=== PATIENT | male | born 1965 | race Caucasian/White ===

== ENCOUNTER 2017-05-23 15:52 | Emergency (ER) | payer MEDICAID ==
[~2017-05-23] VITALS: Ht 177.8 cm; Wt 64.5 kg
[~2017-05-23 15:52] MED LIST: CLON-527 PO; COLACE; FENT1PAT7 TOP; HYDR-565 PO; HYDR-569 PO
[2017-05-23] MEDS ORDERED: HYDROcodone/acetaminophen 5mg/325mg tablet PO ONE (17:00)
[2017-05-23 17:21] VITALS: BP 142/86
== END 2017-05-23 17:22 | disposition home or self-care (01) ==
LOC: ER 15:53
DX: S80.02XA Contusion of left knee, initial encounter (principal); G89.29 Other chronic pain; Z89.512 Acquired absence of left leg below knee; Z98.890 Other specified postprocedural states; Z88.6 Allergy status to analgesic agent; Z79.899 Other long term (current) drug therapy; W19.XXXA Unspecified fall, initial encounter; Y93.89 Activity, other specified; Y92.89 Other specified places as the place of occurrence of the external cause; Y99.9 Unspecified external cause status
CPT/HCPCS: 73560; 99284

== ENCOUNTER 2022-01-16 10:29 | Emergency (ER) | payer MEDICAID ==
[~2022-01-16] VITALS: Ht 177.8 cm; Wt 63.6 kg
[~2022-01-16 10:29] MED LIST changes: +HYDR-4353 PO; +HYDR-4383 PO; -HYDR-565 PO; -HYDR-569 PO
[2022-01-16 11:03] VITALS: BP 125/83
[2022-01-16] MEDS ORDERED: acetaminophen 325mg tablet PO ONE (12:20)
== END 2022-01-16 12:38 | disposition home or self-care (01) ==
LOC: ER 10:30
DX: S09.90XA Unspecified injury of head, initial encounter (principal); G89.29 Other chronic pain; Z88.8 Allergy status to other drugs, medicaments and biological substances; W19.XXXA Unspecified fall, initial encounter; Y93.89 Activity, other specified; Y92.89 Other specified places as the place of occurrence of the external cause; Y99.8 Other external cause status
CPT/HCPCS: 70450; 99284

== ENCOUNTER 2022-04-26 06:18 | Inpatient (IN) | payer MEDICAID ==
[2022-04-19 14:40] LABS: BASOPHILS % (AUTO) 0.5 % (0-1); EOSINOPHILS # (AUTO) 0.3 X10'3 (0-0.9); EOSINOPHILS % (AUTO) 3.7 % (0-6); LYMPHOCYTES # (AUTO) 2.1 X10'3 (1.1-4.8); LYMPHOCYTES % (AUTO) 27.9 % (21-51); MEAN CORPUSCULAR HEMOGLOBIN 33.6 PG (27.0-31.0); MEAN CORPUSCULAR VOLUME 98.7 FL (78-98); MONOCYTES # (AUTO) 0.6 X10'3 (0-0.9); MONOCYTES % (AUTO) 7.8 % (2-12); NEUTROPHILS # (AUTO) 4.4 X10'3 (1.8-7.7); NEUTROPHILS % (AUTO) 60.1 % (42-75); PRE OP HEMATOCRIT 44.8 % (42.0-52.0); PRE OP HEMOGLOBIN 15.2 g/dL (14.0-17.9); PRE OP PLATELET COUNT 170 X10'3 (140-440); RED BLOOD COUNT 4.54 X10'6 (4.70-6.10); RED CELL DISTRIBUTION WIDTH 12.9 % (11.5-14.5)
[2022-04-19 14:59] LABS: ALBUMIN 3.8 G/DL (3.4-5.0); ALBUMIN/GLOBULIN RATIO 0.8 (1.1-1.5); ALKALINE PHOSPHATASE 91 IU/L (46-116); BLOOD UREA NITROGEN 8 MG/DL (7-18); BUN/CREATININE RATIO 11.3 (5.4-32.0); CALCIUM 9.2 MG/DL (8.5-10.1); CHLORIDE 100 MMOL/L (99-107); CREATININE 0.71 MG/DL (0.60-1.10); PRE OP ALT 16 U/L (30-65); PRE OP ANION GAP 8 (8-16); PRE OP AST 24 U/L (10-37); PRE OP BILIRUB, TOTAL 0.4 MG/DL (0.0-1.0); PRE OP GLUCOSE 81 MG/DL (70-104); PRE OP SODIUM 137 MMOL/L (135-145); TOTAL CARBON DIOXIDE 29.2 MMOL/L (24-32); TOTAL PROTEIN 8.4 G/DL (6.4-8.2); eGFR > 90 ML/MIN
[~2022-04-26] VITALS: Ht 177.8 cm; Wt 62.6 kg
[2022-04-26] VITALS (30 sets, daily range): BP systolic 112–144; BP diastolic 74–91
[~2022-04-26 06:18] MED LIST changes: +ALPR0.5T9 PO; -CLON-527 PO; -COLACE; +ESCI20TA39 PO; -FENT1PAT7 TOP; -HYDR-4353 PO; -HYDR-4383 PO; +ceFAZolin inj. 2,000 MG in dextrose 5%-water 100 ML IV ONE; +famotidine 20mg tablet PO ONE; +ringers solution, lacted 1,000 ML IV SCH; +tranexamic acid 650mg tablet PO ONE
[2022-04-26] MEDS ORDERED: vancomycin/NS 1 GM in NS 250 ML IV ONE (08:16)
[2022-04-26] MEDS ORDERED: ROPIVAcaine 0.5% (5mg/ml) 30ml vial ONE ×2 (08:26→09:06)
[2022-04-26] MEDS ORDERED: ketorolac trometh. 30mg/ml inj. ONE (08:26)
[2022-04-26] MEDS ORDERED: ondansetron/PF 4mg/2ml inj IV PRN ×2 (08:45→11:05)
[2022-04-26] MEDS ORDERED: ringers solution, lacted 1,000 ML IV SCH (08:45)
[2022-04-26] MEDS ORDERED: meperidine/PF 25mg/ml syringe IV PRN ×2 (08:45)
[2022-04-26] MEDS ORDERED: HYDROmorphone/PF 0.2 MG/ML SYRINGE IV PRN (08:45)
[2022-04-26] MEDS ORDERED: MIDAZolam 1 MG/ML 5ML VIAL ONE (09:04)
[2022-04-26] MEDS ORDERED: FENTANYL CITRATE/PF 50 MCG/1 ML VIAL ONE (09:04)
[2022-04-26] MEDS ORDERED: propofol inj 20 ML IV ONE (09:04)
[2022-04-26] MEDS ORDERED: dexamethasone sod phosphate 10mg/ml inj ONE (09:14)
[2022-04-26] MEDS ORDERED: sevoflurane 250ml liquid IH ONE (09:14)
[2022-04-26] MEDS ORDERED: ROPIVAcaine 0.2% (10 MG/5 ML) BOLUS INJECTION INTERSCALE PRN (09:16)
[2022-04-26] MEDS ORDERED: ROPIVAcaine 0.2%/PF PUMP/bolus 550 ML INTERSCALE SCH (09:17)
[2022-04-26] MEDS ORDERED: ondansetron/PF 4mg/2ml inj ONE (11:00)
[2022-04-26] MEDS ORDERED: ePHEDrine 50MG/ML INJ. ONE (11:00)
[2022-04-26] MEDS ORDERED: HYDROmorphone 1 mg/ml syringe IV PRN (11:05)
[2022-04-26] MEDS ORDERED: naloxone 0.4 mg/ml inj IV PRN (11:05)
[2022-04-26] MEDS ORDERED: magnesium hydroxide 30ml (MOM) UD suspension PO PRN (11:05)
[2022-04-26] MEDS ORDERED: HYDROcodone/acetaminophen 10/325mg tab PO PRN ×2 (11:05)
[2022-04-26] MEDS ORDERED: HYDROmorphone inj. 0.5 MG/0.5 ML DISP.SYRIN IV PRN (11:05)
[2022-04-26] MEDS ORDERED: diphenhydrAMINE 25mg capsule PO PRN ×2 (11:05)
[2022-04-26] MEDS ORDERED: oxyCODONE IR 5mg (immed. release) tablet PO PRN (11:05)
[2022-04-26] MEDS ORDERED: bisacodyl 10mg suppository rectal RC PRN (11:05)
[2022-04-26] MEDS ORDERED: acetaminophen 325mg tablet PO PRN (11:05)
--- NOTE | 2022-04-26 11:15 | NUR ---
PT ARRIVED TO VIA BED ACCOMPANIED BY DR CALLAWAY-ANESTHESIA REPORT GIVEN, PT WAKING UP, VSS, DENIES PAIN, ON-Q CATHETER PRESENT WITH SHOULDER WRAP, CSM PRESENT WITH PULSES, ARM IN SLING.
[2022-04-26] MEDS: HYDROmorphone/PF 0.2 MG/ML SYRINGE IV PRN ×2 (13:15→14:31)
--- NOTE | 2022-04-26 13:30 | NUR ---
PT AWAKE, SO AT BEDSIDE, VSS, DISCUSSED ON-Q WITH BOTH-ALL QUESTIONS ANSWERED, STARTED AT 2ML/HR, SOME PAIN IN SHOULDER-DILAUDID GIVEN
[2022-04-26] MEDS ORDERED: acetaminophen 325mg tablet PO SCH (14:00)
--- NOTE | 2022-04-26 14:35 | NUR ---
PT AWAKE, VSS, DID HAVE AN EPISODE OF NAUSEA-ZOFRAN GIVEN WITH GOOD RESULTS, ALSO INCREASED PAIN WITH MOVEMENT TO SIDE OF BED TO VOID-GIVEN 2ND DOSE OF DILAUDID WITH GOOD RESULT WELL. NO CHANGES IN CIRCULATION TO SURGICAL ARM-+CSM, +PULSE, ARM IN SLING, REPORT CALLED TO JENNIFER RODRÍGUEZ-ALL QUESTIONS ANSWERED, TAKEN WITH ALL BELONGINGS TO ROOM 350A, BED LOW AND LOCKED, CALL LIGHT IN REACH.
--- NOTE | 2022-04-26 14:45 | NUR ---
Received report from victorino RODRIGUEZ and patient into room 350a . orientated to room . c/o pain but fell asleep when settled into room. pulse to right arm palpable. cold pack in place . commenced on post op vitals appears stable will continue to monitor.
[2022-04-26] MEDS: potassium cl 20mEq in 1/2 NS 1,000 ML IV SCH ×2 (15:11→19:05)
[2022-04-26] MEDS: ceFAZolin/D5W- 1GM premix 50 ML IV SCH ×2 (15:55→23:54)
[2022-04-26] MEDS: oxyCODONE IR 5mg (immed. release) tablet PO PRN ×2 (16:03→20:05)
--- NOTE | 2022-04-26 16:17 | NUR ---
medicated for pain 11/21. see emar. will continue to monitor
--- NOTE | 2022-04-26 18:07 | NUR ---
Problems reprioritized. Patient report given, questions answered & plan of care reviewed with Ellen RODRIGUEZ.
[2022-04-26] MEDS ORDERED: vancomycin/NS 1 GM ADD-VANTAGE 250 ML IV SCH (20:00)
[2022-04-26] MEDS ORDERED: mag hydrox/Alum hydrox/simeth 30ml oral suspension PO PRN (20:10)
[2022-04-26] MEDS ORDERED: sennosides 8.6mg tablet PO SCH (21:00)
[2022-04-27] MEDS: oxyCODONE IR 5mg (immed. release) tablet PO PRN ×3 (00:17→09:18)
[2022-04-27 02:00] VITALS: BP 122/79
[2022-04-27] MEDS: potassium cl 20mEq in 1/2 NS 1,000 ML IV SCH (02:26)
[2022-04-27 06:00] VITALS: BP 153/84
[2022-04-27 06:27] LABS: BASOPHILS % (AUTO) 0.1 % (0-1); EOSINOPHILS % (AUTO) 0.1 % (0-6); HEMATOCRIT 41.2 % (42.0-52.0); HEMOGLOBIN 13.9 g/dl (14.0-17.9); LYMPHOCYTES # (AUTO) 1.4 X10'3 (1.1-4.8); LYMPHOCYTES % (AUTO) 12.6 % (21-51); MEAN CORPUSCULAR HEMOGLOBIN 33.1 PG (27.0-31.0); MEAN CORPUSCULAR HGB CONC 33.7 g/dL (33.0-36.5); MEAN CORPUSCULAR VOLUME 98.4 FL (78-98); MEAN PLATELET VOLUME 7.2 FL (7.4-10.4); MONOCYTES # (AUTO) 0.9 X10'3 (0-0.9); MONOCYTES % (AUTO) 8.4 % (2-12); NEUTROPHILS # (AUTO) 8.8 X10'3 (1.8-7.7); NEUTROPHILS % (AUTO) 78.8 % (42-75); PLATELET COUNT 154 X10'3 (140-440); RED BLOOD COUNT 4.19 X10'6 (4.70-6.10); RED CELL DISTRIBUTION WIDTH 12.9 % (11.5-14.5); WHITE BLOOD COUNT 11.2 X10'3 (4.5-11.0)
[2022-04-27 06:44] LABS: ANION GAP 8 (8-16); CHLORIDE 100 MMOL/L (99-107); POTASSIUM 4.8 MMOL/L (3.5-5.1); SODIUM 135 MMOL/L (135-145); TOTAL CARBON DIOXIDE 27.5 MMOL/L (24-32)
--- NOTE | 2022-04-27 06:46 | NUR ---
Patient in room [facility]. I have received report from Ellen and had the opportunity to ask questions and assume patient care.
[2022-04-27] MEDS ORDERED: ALPRAZolam 0.5mg tablet PO SCH (08:00)
[2022-04-27] MEDS ORDERED: ESCITALOPRAM OXALATE 5 MG TABLET PO SCH (08:00)
[2022-04-27] MEDS ORDERED: aspirin 325mg tablet PO SCH (08:30)
--- NOTE | 2022-04-27 08:55 | NUR ---
Noted pt POD #1 s/p reverse right TSA. Pending first meal since texture modification to mechanical soft (EC7) per [facility] d/t pt being edentulous. Written protein education with RD contact information placed in patient's chart. Will remain available. Addendum: 04/27/22 at [address] Amended: Links added.
[2022-04-27 10:00] VITALS: BP 102/63
[2022-04-27] MEDS ORDERED: OXYC-658 PO ×2 (11:08→11:32)
[2022-04-28] MEDS ORDERED: acetaminophen 325mg tablet PO PRN (11:05)
== END 2022-04-27 12:00 | disposition home or self-care (01) | DRG 322 ==
LOC: PAS IN 06:18 → SUR 3N 14:47
PROVIDERS: ADMIT Orthopaedic Surgery; ATTEND Orthopaedic Surgery
PROC: 0LS30ZZ Reposition Right Upper Arm Tendon, Open Approach (ICD-10-PCS; 2022-04-26)
PROC: 3E0T3BZ Introduction of Anesthetic Agent into Peripheral Nerves and Plexi, Percutaneous Approach (ICD-10-PCS; 2022-04-26)
PROC: 3E0T33Z Introduction of Anti-inflammatory into Peripheral Nerves and Plexi, Percutaneous Approach (ICD-10-PCS; 2022-04-26)
PROC: 0RRJ00Z Replacement of Right Shoulder Joint with Reverse Ball and Socket Synthetic Substitute, Open Approach (ICD-10-PCS; principal; 2022-04-26 09:14)
DX: M19.011 Primary osteoarthritis, right shoulder (principal); D62 Acute posthemorrhagic anemia; K74.60 Unspecified cirrhosis of liver; B19.20 Unspecified viral hepatitis C without hepatic coma; M75.121 Complete rotator cuff tear or rupture of right shoulder, not specified as traumatic; M75.21 Bicipital tendinitis, right shoulder; Z79.899 Other long term (current) drug therapy
CPT/HCPCS: 36415; 80051; 80053; 82948; 85025; 87081; 92508; 92616; 97110; 97116; 97161; A4565; A4615; A4618; A7000; C1776; G0378; J0690; J1100; J1170; J1885; J2250; J2405; J2704; J2795; J3010; J3370; J3480; J3490; J7060; J7120

== ENCOUNTER 2022-05-16 22:09 | Emergency (ER) | payer MEDICAID ==
[~2022-05-16] VITALS: Ht 177.8 cm; Wt 65.0 kg
[~2022-05-16 22:09] MED LIST changes: +OXYC-658 PO; -ceFAZolin inj. 2,000 MG in dextrose 5%-water 100 ML IV ONE; -famotidine 20mg tablet PO ONE; -ringers solution, lacted 1,000 ML IV SCH; -tranexamic acid 650mg tablet PO ONE
[2022-05-16 22:39] VITALS: BP 140/89
--- NOTE | 2022-05-17 00:04 | NUR ---
pt states he is here for benzo withdrawl due to running out of xanax prio to refil.
[2022-05-17] MEDS ORDERED: ALPRAZolam 0.5mg tablet PO ONE (00:20)
[2022-05-18] MEDS ORDERED: HYDR-3686 PO (00:54)
== END 2022-05-17 00:47 | disposition home or self-care (01) ==
LOC: ER 22:10
DX: F41.9 Anxiety disorder, unspecified (principal); Z76.0 Encounter for issue of repeat prescription; G89.29 Other chronic pain; Z88.6 Allergy status to analgesic agent; Z88.8 Allergy status to other drugs, medicaments and biological substances; Z79.899 Other long term (current) drug therapy
CPT/HCPCS: 99283

== ENCOUNTER 2022-05-17 21:54 | Emergency (ER) | payer MEDICAID ==
[~2022-05-17] VITALS: Ht 177.8 cm; Wt 65.0 kg
[2022-05-18] MEDS ORDERED: ALPRAZolam 0.5mg tablet PO ONE (00:50)
[2022-05-18] MEDS ORDERED: HYDR-3686 PO (00:54)
[2022-05-18 01:17] VITALS: BP 145/84
== END 2022-05-18 01:18 | disposition home or self-care (01) ==
LOC: ER 21:54
DX: Z76.0 Encounter for issue of repeat prescription (principal); F41.9 Anxiety disorder, unspecified; G89.29 Other chronic pain; Z88.5 Allergy status to narcotic agent; Z88.6 Allergy status to analgesic agent; Z88.8 Allergy status to other drugs, medicaments and biological substances
CPT/HCPCS: 99283

== ENCOUNTER 2022-06-25 15:41 | Emergency (ER) | payer MEDICAID ==
[~2022-06-25] VITALS: Ht 179.1 cm; Wt 59.1 kg
[2022-06-25 16:08] VITALS: BP 170/94
[2022-06-25] MEDS ORDERED: ALPRAZolam 0.5mg tablet PO ONE (16:55)
== END 2022-06-25 18:23 | disposition home or self-care (01) ==
LOC: ER 15:42
DX: F41.9 Anxiety disorder, unspecified (principal); G89.29 Other chronic pain; Z86.69 Personal history of other diseases of the nervous system and sense organs; Z60.2 Problems related to living alone; Z88.6 Allergy status to analgesic agent; Z88.8 Allergy status to other drugs, medicaments and biological substances; Z79.899 Other long term (current) drug therapy
CPT/HCPCS: 99283

== ENCOUNTER 2022-06-28 06:42 | Emergency (ER) | payer MEDICAID ==
[~2022-06-28] VITALS: Ht 177.8 cm; Wt 63.6 kg
[2022-06-28] MEDS ORDERED: chlordiazePOXIDE 25mg capsule PO ONE (08:05)
[2022-06-28 09:01] VITALS: BP 120/74
== END 2022-06-28 09:04 | disposition home or self-care (01) ==
LOC: ER 06:44
DX: F41.9 Anxiety disorder, unspecified (principal); F13.239 Sedative, hypnotic or anxiolytic dependence with withdrawal, unspecified; I10 Essential (primary) hypertension; G89.29 Other chronic pain; Z88.6 Allergy status to analgesic agent; Z88.8 Allergy status to other drugs, medicaments and biological substances; Z79.899 Other long term (current) drug therapy
CPT/HCPCS: 99284

== ENCOUNTER 2022-07-23 15:21 | Emergency (ER) | payer MEDICAID ==
[~2022-07-23] VITALS: Ht 177.8 cm; Wt 54.5 kg
[2022-07-23 15:31] VITALS: BP 146/81
[2022-07-23] MEDS ORDERED: methadone 10mg tablet PO ONE ×2 (17:55→18:00)
== END 2022-07-23 18:24 | disposition home or self-care (01) ==
LOC: ER 15:21
DX: G89.29 Other chronic pain (principal); F41.9 Anxiety disorder, unspecified; F17.200 Nicotine dependence, unspecified, uncomplicated; Z76.0 Encounter for issue of repeat prescription; Z98.890 Other specified postprocedural states; Z60.2 Problems related to living alone; Z88.6 Allergy status to analgesic agent; Z88.8 Allergy status to other drugs, medicaments and biological substances; Z79.899 Other long term (current) drug therapy
CPT/HCPCS: 93005; 99283

== ENCOUNTER 2022-10-11 09:30 | Emergency (ER) | payer MEDICAID ==
[~2022-10-11] VITALS: Ht 177.8 cm; Wt 62.7 kg
[2022-10-11 09:47] VITALS: BP 169/122
[2022-10-11] MEDS ORDERED: diazepam 5mg tablet PO ONE (10:15)
[2022-10-11] MEDS ORDERED: ondansetron 4mg rapidly disintigrating tab PO ONE (10:15)
[2022-10-11] MEDS ORDERED: DIAZ5TAB22 PO ×3 (10:20→10:34)
[2022-10-11] MEDS ORDERED: ONDA4TAB12 PO ×3 (10:20→10:34)
== END 2022-10-11 10:53 | disposition home or self-care (01) ==
LOC: ER 09:31
DX: F13.20 Sedative, hypnotic or anxiolytic dependence, uncomplicated (principal); R11.0 Nausea; G89.29 Other chronic pain; F41.9 Anxiety disorder, unspecified; Z98.890 Other specified postprocedural states; Z60.2 Problems related to living alone; Z88.8 Allergy status to other drugs, medicaments and biological substances; Z88.6 Allergy status to analgesic agent; Z79.899 Other long term (current) drug therapy
CPT/HCPCS: 99284

== ENCOUNTER 2023-02-18 20:49 | Emergency (ER) | payer MEDICAID ==
[~2023-02-18] VITALS: Ht 177.8 cm; Wt 65.9 kg
[~2023-02-18 20:49] MED LIST changes: +DIAZ5TAB22 PO; +ONDA4TAB12 PO
[2023-02-18 21:14] VITALS: RESP 16; O2SAT 98
[2023-02-18 23:39] VITALS: BP 129/71; PULSE 61; TEMP 98.4
[2023-02-19] MEDS ORDERED: LIDOcaine 5% patch TP STA (00:50)
[2023-02-19] MEDS ORDERED: LIDO700A32 TOP (00:56)
== END 2023-02-19 01:15 | disposition home or self-care (01) ==
LOC: ER 20:51
DX: M54.59 Other low back pain (principal); G89.29 Other chronic pain; F41.9 Anxiety disorder, unspecified; Z88.6 Allergy status to analgesic agent; Z88.8 Allergy status to other drugs, medicaments and biological substances; Z79.899 Other long term (current) drug therapy
CPT/HCPCS: 99284